=== PATIENT | male | born 1995 | race Two or more races ===

== ENCOUNTER 2016-10-16 13:58 | Emergency (ER) | payer SELFPAY ==
[2016-10-16] MEDS: FENTANYL PF 100 MCG/2 ML VIAL. IV PRN ×2 (14:55→15:54)
[2016-10-16] MEDS ORDERED: DIPHTH,PERTUSS(ACELL),TET TOX 0.5 ML DISP.SYRIN. VAX IM ONE (15:00)
--- NOTE | 2016-10-16 15:05 | RAD ---
Left hand, 3 views, 10/16/2016: History: Left hand, compression injury A prominent soft tissue defect is seen along the volar aspect of the proximal end of the thumb. No underlying fracture or dislocation is identified. No radiopaque foreign body is seen. IMPRESSION: No acute bony abnormality is detected.
[2016-10-16] MEDS ORDERED: CEFAZOLIN SODIUM 1 GM in IV NORMAL SALINE 50ML 50 ML IV ONE (15:15)
[2016-10-16] MEDS ORDERED: CEFAZOLIN 1GM IVPB FOR OMNI 50 ML IV ONE (15:15)
[2016-10-16] MEDS ORDERED: LIDOCAINE 1% / SOD BICARB 8.4% 20 ML VIAL. IJ ONE (15:30)
--- NOTE | 2016-10-16 16:08 | PHYS DOC ---
Past Medical History Past Medical History: No Pertinent History Past Surgical History: No Surgical History Alcohol Use: Occasionally Drug Use: Marijuana Adult General Chief Complaint Chief Complaint: TRAUMA ALERT HPI HPI Patient is a 21 year old male who presents with friend for evaluation of left thumb injury. He was trying to check of his car, when the car fell off the chucho smashing his thumb between the car and the chucho. He had large amount of bleeding from his thumb. He has severe pain to his thumb that is achy and constant and worse with movement. He states he cannot feel the tip of his thumb and he cannot bend at his IP. He denies other injury. He denies bleeding disorder. He denies weakness or lightheadedness. He is right-handed Review of Systems Review of Systems Constitutional: Denies fever or chills [] Eyes: Denies change in visual acuity, redness, or eye pain [] HENT: Denies nasal congestion or sore throat [] Respiratory: Denies cough or shortness of breath [] Cardiovascular: No additional information not addressed in HPI [] GI: Denies abdominal pain, nausea, vomiting, bloody stools or diarrhea [] : Denies dysuria or hematuria [] Musculoskeletal: Denies back pain [] Integument: Denies rash or skin lesions [] Neurologic: Denies headache, focal weakness or sensory changes [] Endocrine: Denies polyuria or polydipsia [] Current Medications Current Medications Current Medications Medications (Trade) Dose Ordered Sig/[facility] Start Time Stop Time Status Last Admin Dose Admin Cefazolin Sodium (Ancef 1gm Ivpb For Omni) 50 ml @ 100 mls/hr 1X ONCE 10/16/16 15:15 10/16/16 15:44 DC 10/16/16 15:15 100 MLS/HR Cefazolin Sodium 1 gm/Sodium Chloride 50 ml @ 100 mls/hr 1X ONCE 10/16/16 15:15 10/16/16 15:44 UNV Diphtheria/ Tetanus/Acell Pertussis 0.5 ml 0.5 ml ONCE ONCE 10/16/16 15:00 10/16/16 15:01 DC 10/16/16 14:55 0.5 ML Fentanyl Citrate (Fentanyl 2ml Vial) 50 mcg PRN Q15MIN PRN 10/16/16 14:45 10/16/16 18:43 DC 10/16/16 15:54 50 MCG Lidocaine/Sodium Bicarbonate (Buffered Lidocaine 1%) 20 ml 1X ONCE 10/16/16 15:30 10/16/16 15:37 DC 10/16/16 15:30 20 ML Allergies Allergies Allergies Coded Allergies Type Severity Reaction Last Updated Verified No Known Drug Allergies 10/16/16 No Physical Exam Physical Exam Constitutional: Well developed, well nourished, no acute distress, non-toxic appearance. [] HENT: Normocephalic, atraumatic, bilateral external ears normal, oropharynx moist, nose normal. [] Eyes: PERRLA, EOMI. [] Neck: Normal range of motion, supple. [] Cardiovascular:Heart rate regular rhythm [] Lungs & Thorax: Bilateral breath sounds clear to auscultation [] Abdomen: Bowel sounds normal, soft, no tenderness. [] Skin: Warm, dry, no erythema, no rash. [] Back: Normal range of motion. [] Extremities: LUE with 4cm U-shaped laceration to sidhu aspect of thumb mid proximal phalanx with obvious flexor tendon laceration; no obvious bony exposure ; thumb held extended; Cannot resist pressure or flex at IP or MCP of thumb; can extend at IP and MCP of thumb; Can make fist//finger cross and spread; Can flex/ex wrist; Good radial pulse and brisk cap refill equal bilaterally; sensation intact to light touch m/u/r nerves although states diminished sensation of left thumb distal to injury Neurologic: Alert and oriented X 3, normal motor function, normal sensory function, no focal deficits noted. [] Psychologic: Affect normal, judgement normal, mood normal. [] Current Patient Data Vital Signs Vital Signs Date Time Temp Pulse Resp B/P Pulse Ox O2 Delivery O2 Flow Rate FiO2 10/16/16 17:23 102 110/62 99 Room Air 10/16/16 14:10 98.0 18 98.0 Radiology/Procedures Radiology/Procedures X-ray left hand as interpreted by me as obvious soft tissue defect of the proximal thumb, subtle nondisplaced fracture of the small phalanx at the distal portion of the shaft concerning for open fracture Course & Med Decision Making Course & Med Decision Making Pertinent Labs and Imaging studies reviewed. (See chart for details) I have concern for subtle nondisplaced fracture of proximal phalanx of thumb as well as flexor tendon laceration. Discussed case with Dr. Noemi, who recommends specialist consultation by hand surgeon. Discussed with transfer line Diamond Askew triage nurse, and Dr. Dahl orthopedic hand surgeon at [facility]. Dr. Dahl recommended washing wound, ancef IV, keflex for home, laceration repair, thumb spica splint, and follow up in 2 days. Provided contact info to Diamond to arrange follow up. After multiple conversations with specialists, I discussed the plan with the patient per their recommendations. He received Ancef IV and allowed minimal irrigation of his wound. After plan discussion, the patient became angry that we are not performing surgery tonight. He feels we are not providing appropriate care. He then stated he refuses any further care and wishes to leave the emergency department now. He would not allow digital block, exploration, or laceration repair, or splint placement. Patient is A&O X 4 with no evidence of intoxication and possesses normal capacity and judgement to understand the risks of leaving AMA, which include but not limited to: , damage to organs or limbs, permanent disability, and respiratory failure. I have tried to convince patient to stay for further assessment and treatment, but they refuse to stay. I urged them therefore to seek medical attention and to return here immediately if they change their mind. The patient understands they are welcome to return at any time. The patient refused to sign the AMA form. He refused to take discharge papers including prescription for keflex. He ambulated out of the emergency department without allowing us to dress his wound. Dragon Disclaimer Dragon Disclaimer This electronic medical record was generated, in whole or in part, using a voice recognition dictation system. Departure Departure Impression: Primary Impression: Laceration of long flexor muscle, fascia and tendon of left thumb at wrist and hand level, initial encounter Additional Impression: Open fracture of thumb Disposition: 07 AGAINST MEDICAL ADVICE Condition: STABLE Referrals: NO PCP (PCP) Patient Instructions: Laceration, Old, Not Sutured Additional Instructions: You left AGAINST MEDICAL ADVICE prior to letting us wash, stitch, and place splint on your finger. Take Keflex to help prevent infection. I have included some information for unrepaired laceration. We called [facility] to arrange orthopedics follow-up for you. Follow up with Dr. Dahl at Orthopedics clinic in 2 days. Call [phone] for any questions. Scripts Cephalexin (Keflex)250 Mg Capsule1 Cap PO TID #21 CAP Prov:Adin RON MD 10/16/16 Problem Qualifiers Additional Impression: Open fracture of thumb Encounter type: initial encounter Phalanx: proximal Fracture alignment: nondisplaced Laterality: left Qualified Code: S62.515B - Nondisplaced fracture of proximal phalanx of left thumb, initial encounter for open fracture Adin RON MD Oct 16, 2016 16:08
[2016-10-16 17:23] VITALS: BP 110/62
[2016-10-16] MEDS ORDERED: CEPH-263 PO (17:43)
== END 2016-10-16 18:34 | disposition left against medical advice (07) ==
LOC: ER 13:58
DX: S62.515B Nondisplaced fracture of proximal phalanx of left thumb, initial encounter for open fracture (principal); S61.012A Laceration without foreign body of left thumb without damage to nail, initial encounter; F12.10 Cannabis abuse, uncomplicated; W23.0XXA Caught, crushed, jammed, or pinched between moving objects, initial encounter; Y93.89 Activity, other specified; Y92.89 Other specified places as the place of occurrence of the external cause; Y99.8 Other external cause status
CPT/HCPCS: 73130; 90471; 90715; 96365; 96375; 99284; J0690; J3010